=== PATIENT | female | born 1935 | race Caucasian/White ===

== ENCOUNTER 2025-03-04 10:29 | Outpatient (AMB) | payer BC, MEDICARE, SELFPAY ==
--- NOTE | 2025-03-04 10:11 | MHC.PC.OV ---
Vital Signs 03/04/25 10:34 Height 5 ft 6 in Weight 133 lb BMI 21.5 BP 126/74 Blood Pressure Location Lt brachial Position Sitting Pulse 73 Pulse Source Pulse Oximeter Temp 97.1 F Temp Source Temporal Artery Scan Pulse Oximetry (%) 97 Oxygen Delivery Method Room Air Intake Visit Reasons: establish care [employer] Field Assistant Required: No Accompanied by: Self / Same As Patient Allergies Penicillins (PCN) Allergy (Verified 03/04/25 10:50) Rash Medication List - Last Reconciled 03/04/25 by Daina Abbott PA-C amlodipine 5 mg PO DAILY atorvastatin (Lipitor) 40 mg PO DAILY clopidogrel 75 mg PO DAILY hydrochlorothiazide 25 mg PO DAILY lisinopril 10 mg PO BID meclizine 12.5 mg PO TID PRN metoprolol tartrate 100 mg PO BID Tobacco use date assessed: 03/04/25 Fall risk assessment: No Falls in past year Last assessed Fall Risk: 03/04/25 Dental Screening Dental Screen Date: 03/04/25 Did you have a dental visit in the last 12 months?: No Did you have a dental problem in the last 6 months where you did not have access to dental care?: No HPI establish care HPI Details 89 year old female coming to the office for the first time. Presenting for a follow-up on her chronic conditions and medication management. Transient Ischemic Attack (TIA) Approximately 6 to 8 years ago, the patient experienced a TIA and is on clopidogrel to prevent recurrence. Hypertension Previously uncontrolled, leading to syncope, now well-managed with medication. Previous Femur fracture impacts mobility, causing leg fatigue. She was previously following with cardiology possibly through [facility] and had a loop recorder performed but is unsure of the results. [facility] Medical History Femur fracture, right Family History Mother No problems noted. Father No problems noted. Social History Housing: Apartment Patient Tobacco Use Status: Former Tobacco user e-Cigarette/Vaping Use: Former Use service: No Current occupational status: retired Cognitive needs: No Hearing needs: No Vision needs: Yes (reading glasses) Questionnaire PHQ-9 Over the last 2 weeks, how often have you been bothered by any of the following problems? 1. Little interest or pleasure in doing things: not at all 2. Feeling down, depressed, or hopeless: not at all 3. Trouble falling or staying asleep, or sleeping too much: not at all 4. Feeling tired or having little energy: not at all 5. Poor appetite or overeating: not at all 6. Feeling bad about yourself - or that you are a failure or have let yourself or your family down: not at all 7. Trouble concentrating on things, such as reading the newspaper or watching television: not at all 8. Moving or speaking so slowly that other people could have noticed. Or the opposite - being so fidgety or restless that you have been moving around a lot more than usual: not at all 9. Thoughts that you would be better off or of hurting yourself in some way: not at all Total score: 0 Depression Screening Interpretation: Negative Depression Screening Done: Yes Source: Developed by Drs. Santiago Kaur, Genesis Pierce, Jack Locke and colleagues, with an educational franc from [email or web address]. Thrive Questionnaire Date Thrive assessed: 03/04/25 I am a: Patient Within the past 12 months, did the food you bought not last and you didn't have the money to get more?: Never true Within the past 12 months, did you worry whether your food would run out before you got money to buy more?: Never true Do you have trouble paying for medicines?: No Do you have trouble getting transportation to medical appointments?: No Do you have trouble paying your heating and electricity bill?: No Do you have trouble taking care of your child, family member or friend?: No Do you have trouble with day-to-day activities such as bathing, preparing meals, shopping, managing finances, etc.?: No Are you currently unemployed and looking for a job?: No Are you interested in more education?: No THRIVE Score: 0 AUDIT C Alcohol Use Questionnaire (AUDIT-C) 1. How often do you have a drink containing alcohol?: Never 3. How often do you have six or more drinks on one occasion?: Never Total Score: 0 DARIN-7 AMB Questionnaire DARIN-7 Date DARIN - 7 assessed: 03/04/25 Feeling nervous, anxious, or on edge: 0 = Not at all Not being able to stop or control worryin = Not at all Worrying too much about different things: 0 = Not at all Trouble relaxin = Not at all Being so restless that it is hard to sit still: 0 = Not at all Becoming easily annoyed or irritable: 0 = Not at all Feeling afraid as if something awful might happen: 0 = Not at all Total DARIN-7 score (0-4 normal; 5-9 mild; 10-14 moderate; 15-21 severe): 0 Source: Developed by Drs. Santiago Kaur, Genesis Pierce, Jack Locke and colleagues, with an educational franc from [email or web address]. Review of Systems Const Denies body aches, Denies chills, Denies fever(s), Denies headache(s) and Denies poor appetite Eyes Reports no additional complaints ENT Denies dizziness and Denies headache(s) Card Denies chest pain, Denies syncope, Denies edema, Denies lightheadedness and Denies dyspnea Resp Denies cough and Denies dyspnea GI Denies abdominal pain, Denies constipation, Denies diarrhea, Denies nausea and Denies vomiting Reports no additional complaints Musc Reports no additional complaints and Denies abnormal gait Skin/Breast Reports system reviewed and no additional complaints, except as documented Neuro Denies abnormal gait, Denies dizziness, Denies syncope and Denies headache(s) Psych Reports no additional complaints Physical exam (Primary Care) Vital Signs: Last Vital Signs Temp 97.1 F 03/04/25 10:34 Pulse 73 03/04/25 10:34 BP 126/74 03/04/25 10:34 Pulse Ox 97 03/04/25 10:34 Oxygen Delivery Method Room Air 03/04/25 10:34 BMI result Body Mass Index 21.5 Tobacco/Smoking Status: Tobacco use Status Tobacco use date assessed 03/04/25 03/04/25 10:49 Patient Tobacco Use Status Former Tobacco user 03/04/25 10:49 e-Cigarette/Vaping Use Former Use 03/04/25 10:49 PHQ-9: PHQ-9 Score PHQ-9: Total score 0 03/04/25 10:58 Depression Screening Interpretation: Negative Thrive Assessment: Date of Thrive Assessment Date Thrive assessed 03/04/25 03/04/25 10:49 Const General: cooperative, healthy appearing, comfortable and no acute distress Orientation/consciousness: patient oriented x3 HENMT Head: Yes normocephalic Ears: hearing grossly normal bilaterally General nose exam: Normal external nose present Eyes General: appearance normal, both eyes and all related structures Conjunctivae: conjunctivae normal Neck Neck: Yes full ROM and Yes no lymphadenopathy Resp Effort & Inspection: normal respiratory effort Auscultation: clear to auscultation bilaterally, no crackles, no rales, no rhonchi and no wheezes Cardio Rate: regular rate Rhythm: regular rhythm Skin General skin exam: no rashes or lesions noted Neuro General: patient oriented x3 Gait exam (Neuro): Normal gait present Extrem General: Yes normal to inspection, Yes full ROM and No edema Psych Affect: normal affect Attitude: cooperative Insight: Good insight present (Psych) Judgement: Good judgement present (Psych) Coding Level of Care Code New Pt Level 4 (72354) Diagnoses Hypercholesterolemia E78.00 Hypertension I10 TIA (transient ischemic attack) G45.9 BPPV (benign paroxysmal positional vertigo) H81.10 GERD (gastroesophageal reflux disease) K21.9 Assessment & Plan Assessment & Plan (1) Hypercholesterolemia: Code(s): E78.00 - Pure hypercholesterolemia, unspecified Category: Medical Plan: The patient will continue current lipid-lowering therapy. Lipid panel results will be reviewed once available to assess the need for any adjustments. Avoid foods that are high in cholesterol such as red meat, fried foods, eggs and baked goods. Triglyceride goal of less than 150 and LDL goal of less than 70 . Continue on Atorvastatin (2) Hypertension: Code(s): I10 - Essential (primary) hypertension Category: Medical Plan: Continue on current blood pressure medication. Avoid salt intake and encourage healthy diet and regular exercise. (3) TIA (transient ischemic attack): Code(s): G45.9 - Transient cerebral ischemic attack, unspecified Category: Medical Plan: History of TIA and on clopidogrel. Continue with close management of cholesterol, blood pressure and blood sugars. I did ordered for updated blood work to be completed by the patient (4) BPPV (benign paroxysmal positional vertigo): Code(s): H81.10 - Benign paroxysmal vertigo, unspecified ear Category: Medical Plan: She currently uses Meclizine as needed. (5) GERD (gastroesophageal reflux disease): Code(s): K21.9 - Gastro-esophageal reflux disease without esophagitis Category: Medical Plan: Dietary modifications to avoid acidic foods are recommended to manage GERD symptoms. [id number] antacids may be used as needed for symptom relief. Avoid trigger foods such as citrus, tomato products, soda, caffeine, spicy foods and other foods that may be irritating to your stomach. Avoid laying flat 3-4 hours after eating and elevate the head of the bed 30 degrees to prevent acid from moving into the esophagus. Plan This note was constructed using voice recognition software. While every effort has been made to ensure accuracy and director of pupil personnel program, still areas may have been included sometimes these areas may affect the content or meeting of the given symptoms. Total time spent caring for the patient today was 30 minutes. This includes time spent before the visit reviewing the chart, time spent during the visit, and time spent after the visit and documentation. Patient was informed and verbally consented to the use of an ambient scribe for clinic note documentation during this visit. Orders: Orders Lipid Panel Today E78.00 - Pure hypercholesterolemia, unspecified, G45.9 - Transient cerebral ischemic attack, unspecified TSH reflex Free T4 Today Z13.29 - Encounter for screening for other suspected endocrine disorder Vitamin B12 and Folate Today Z13.21 - Encounter for screening for nutritional disorder Complete Blood Count Auto Diff Today G45.9 - Transient cerebral ischemic attack, unspecified, Z00.00 - Encounter for general adult medical examination without abnormal findings Comprehensive Met. Panel Today G45.9 - Transient cerebral ischemic attack, unspecified, Z00.00 - Encounter for general adult medical examination without abnormal findings Vitamin D 25-OH Total Today Z13.21 - Encounter for screening for nutritional disorder Medications: New amlodipine 5 mg PO DAILY 90 tabs 0RF atorvastatin (Lipitor) 40 mg PO DAILY 90 tabs 0RF clopidogrel 75 mg PO DAILY 90 tabs 0RF lisinopril 10 mg PO BID 180 tabs 0RF metoprolol tartrate 100 mg PO BID 180 tabs 0RF clopidogrel 75 mg PO DAILY 90 tabs 1RF lisinopril 10 mg PO BID 180 tabs 1RF metoprolol tartrate 100 mg PO BID 180 tabs 1RF hydrochlorothiazide 25 mg PO DAILY 90 tabs 0RF amlodipine 5 mg PO DAILY 90 tabs 1RF atorvastatin (Lipitor) 40 mg PO DAILY 90 tabs 1RF hydrochlorothiazide 25 mg PO DAILY 90 tabs 1RF
[2025-03-04 10:34] VITALS: BP 126/74; PULSE 73; TEMP 36.2; O2SAT 97; BMI 21.5
--- OUTSIDE RECORDS SUMMARY | 2025-03-04 12:51 | XMS_ITS | Clinical Summary ---
Author Organization [facility] Address [address] [place] [address] Phone Care Team Providers Care Community Relations Rep Name Role Phone Unavailable Primary Care Provider Unavailabl e Allergies Active Allergy Reactions Criticality Noted Date Comments Penicillins 05/24/2018 Medications cholecalcifero l (VITAMIN D-3) 10 mcg (400 unit) tablet Take 1 tablet (400 Units total) by mouth daily. Active raloxifene (EVISTA) 60 mg tablet Take 1 tablet (60 mg total) by mouth 1 (one) time each day. 30 each 6 4 Active amLODIPine (NORVASC) 5 mg tablet Take 1 tablet (5 mg total) by mouth at bedtime. at bedtime 90 tablet 1 5 Active metoprolol tartrate (LOPRESSOR) 100 mg tablet TAKE ONE TABLET BY MOUTH TWICE DAILY 180 tablet 1 5 Active atorvastatin (LIPITOR) 40 mg tablet Take 1 tablet (40 mg total) by mouth at bedtime. 90 tablet 1 5 Active clopidogreL (PLAVIX) 75 mg tablet TAKE ONE TABLET BY MOUTH ONCE DAILY 90 tablet 1 5 Active lisinopriL (PRINIVIL,ZEST RIL) 10 mg tablet TAKE ONE TABLET BY MOUTH EVERY TWELVE HOURS daily 180 tablet 1 5 Active hydroCHLOROthi azide (HYDRODIURIL) 25 mg tablet TAKE ONE TABLET BY MOUTH ONCE DAILY 90 tablet 5 Active hydroCHLOROthi azide (HYDRODIURIL) 25 mg tablet TAKE ONE TABLET BY MOUTH ONCE DAILY 90 tablet 1 5 02/27/20 25 Discontinued Active Problems Problem Noted Date Diagnosed Date History of stroke 08/23/2024 Vertigo 02/04/2023 Hyperlipidemia 07/16/2021 Hypothyroidism 07/16/2021 Eczema 03/20/2019 Erosive gastritis 12/18/2018 Hypertension 11/28/2018 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/03/2016 Osteoporosis 10/22/2016 Breast cancer ([facility] V24, [facility] V28) Overview (08/23/2024): right breast, lumpectomy History of breast cancer Overview (08/28/2024): 2018 right breast lumpectomy, RT Resolved Problems Problem Noted Date Diagnosed Date Resolved Date Edema of left foot 04/30/2020 Right elbow pain 04/30/2020 08/23/2024 Immunizations Name Administration Dates Next Due Influenza Quadravalent, 0.5m l (Fluad) 65yo and older 04/25/2023,03/24/2021,03/05/2020 Influenza Quadravalent, 0.5m l (Fluzone High-dose) 65yo and older 04/05/2024,04/16/2022,03/22/2018 Influenza trivalent, 0.5mL ( Fluzone High-dose) 65yo and older 03/13/2023,03/22/2019,03/16/2017,02/17 Influenza trivalent, 0.5mL, preservative free (Fluarix; FluLaval; Fluzone) ages 6mo and older (Afluria) 3 years and older 03/13/2015,02/17/2011 Influenza trivalent, with pr eservative (Fluzone; Afluria) 6mo and older 02/26/2014,04/19/2013,03/31/2012,03/16,03/05/2010 Pfizer SARS-CoV-2 COVID-19, mRNA, LNP-S, preservative free 04/21/2021,08/06/2020,07/15/2020 Pneumococcal conjugate 13 va lent (Prevnar 13, PCV13) 2mo and older 03/22/2019 Pneumococcal polysaccharide 23 valent (Pneumovax 23) 2yo and older 02/17/2006 RSV, bivalent, protein subun it RSVpreF, 0.5mL, Preservative Free (ABRYSVO) 60yo and older or 32 through 36 wks of 08/24/2023 Respiratory Syncytial Virus Monoclonal Antibody (palivizumab), Intramuscular 08/24/2023 Td Tetanus diptheria (Tdvax) 7yo and older 11/17/2021 Zoster recombinant (Shingrix ) 19yo and older 05/05/2024 Surgical History Surgery Date Site/Laterality Comments SCREENING MAMMOGRAM 03/27/2024 Bilateral Medical History Medical History Date Comments Hypothyroidism 07/16/2021 Hyperlipidemia 07/16/2021 Vertigo 02/04/2023 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/03/2016 Erosive gastritis 12/18/2018 Osteoporosis 10/22/2016 History of stroke 08/23/2024 History of breast cancer 2019 ri ght breast lumpectomy, RT Family History Medical History Relation Name Comments Other: cancer bone Father Hypertension Mother cholesterol Relation Name Status Comments Father Mother Social History Tobacco Use Types Packs/Day Years Used Date Smoking Tobacco: Former Smokeless Tobacco: Never Tobacco Cessation:Counseling Given: Not Answered Comments Unknown Sex and Gender Information Value Date Recorded Sex Assigned at Not on file Legal Sex Female 10:48 AM EST Gender Identity Not on file Sexual Orientation Not on file Obstetrics History Last Filed Vital Signs Vital Sign Reading Time Taken Comments Blood Pressure 124/68 08/28/2024 10:58 AM EDT Pulse 68 08/28/2024 10:58 AM EDT Temperature 36.2 C (97.1 F) 08/28/2024 10:58 AM EDT Respiratory Rate 14 08/28/2024 10:58 AM EDT Oxygen Saturation 95% 08/28/2024 10:58 AM EDT Inhaled Oxygen Concentration - - Weight 64.9 kg (143 lb 1.6 oz) 08/28/2024 10:58 AM EDT Height 167.6 cm (5' 6 ) 08/28/2024 10:58 AM EDT Body Mass Index 23.1 08/28/2024 10:58 AM EDT Plan of Treatment Upcoming Encounters Date Type Department Care Team (Late st Contact Info) Description 05/29/2025 11:00 AM EST Office Visit [facility] Hematology Oncology [address] [place] [id number] Nelson Peng MD [address] [place] [address] Health Maintenance Due Date Last Done Comments Social Influencers of Health Screening 05/19/2022 Depression Screening 06/13/2024 Zoster Vaccines (2 of 2) 06/30/2024 05/05/2024 COVID-19 Vaccine ( - season) 2025 04/21/2021, 08/06/2020, 07/15/2020 Influenza Vaccine (#1) 2025 , 04/25/2023, 03/13/2023, Additional history exists Falls Risk Assessment 02/27/2025 02/28/2024 Medicare Annual Wellness Visit 02/27/2025 02/28/2024 Hypertension/CHF/CAD Annual BMP Blood Test 03/27/2025 03/27/2024, 03/02/2018, 03/02/2018 Cholesterol Screening (Lipid Panel) 03/27/2029 03/27/2024 DTaP,Tdap,and Td Vaccines (2 - Td or Tdap) 11/18/2031 11/17/2021 Osteoporosis Screening (Bone Density Screening) 09/13/2032 09/13/2022, 02/08/2020 Pneumococcal Vaccine: 50+ Years Completed 03/22/2019, 02/17/2006 RSV Immunization Adult Patients Completed 08/24/2023 HIB Vaccines Aged Out No longer eligi ble based on patient's age to complete this topic HPV Vaccines Aged Out No longer eligi ble based on patient's age to complete this topic Hepatitis A Vaccines Aged Out No long er eligible based on patient's age to complete this topic Hepatitis B Vaccines Aged Out No long er eligible based on patient's age to complete this topic IPV Vaccines Aged Out No longer eligi ble based on patient's age to complete this topic MMR Vaccines Aged Out No longer eligi ble based on patient's age to complete this topic Meningococcal ACWY Vaccine Aged Out N o longer eligible based on patient's age to complete this topic Meningococcal B Vaccine Aged Out No l onger eligible based on patient's age to complete this topic RSV Immunization Patients Under 20 months Aged Out No longer eligible based on patient's age to complete this topic Varicella Vaccines Aged Out No longer eligible based on patient's age to complete this topic Procedures Procedure Name Priority Date/Time Associated Diagnosis Comments [facility] DEXA AXIAL SKELETON Routine 09/13/2022 11:50 AM EDT Encounter for screening for osteoporosis ANNUAL BMP BLOOD TEST Routine 03/02/2018 from Last 3 Months or Most Recently Relevant to Health Maintenance Results * [facility] DEXA AXIAL SKELETON (09/13/2022 11:50 AM EDT) Anatomical Region Laterality Modality Mammography 09/13/2022 11:1 2 AM EDT Narrative 09/13/2022 11:[address] [facility] Diagnostic Imaging Department [address] [place] [address] Patient: YESSENIA COLON D.O.B./Age/Sex: 1935 - 86 - F Unit#: [id number] Location/Status: SPDIMAM/REG CLI Mnem[facility] Ordering Physician: NELSON PENG MD [facility] Dexa Axial Skeleton - 09/13/22 - 1135 HISTORY: The patient is an 86-year-old postmenopausal female with clinical concern for metabolic bone disease. FINDINGS: Dual energy x-ray absorptiometry of the lumbar spine and left femur is performed. The mean bone mineral density at L2-4 is 0.917 gm/cm2 which is 76% of that of young normals and 94% of that of age matched controls. This yields a T-score of -2.4 and a Z-score of -0.5 which is diagnostic of osteopenia. The mean bone mineral density of the left femur is 0.559 gm/cm2 which is 55% of that of young normals and 78% of that of age matched controls. This yields a T- score of -3.6 and a Z-score of -1.3 which is diagnostic of osteoporosis. IMPRESSION: 1. Osteoporosis. There has been a decrease of 1.2% in bone mineral density in the lumbar spine since the prior examination of 02/08/2020. There has been a decrease of 3.0% in bone mineral density in the left femur. 2. FRAX analysis yields a 10-year probability of major osteoporotic fracture of 40.3% and a 10-year probability of hip fracture of 18.3%. Code 60528 Dictating Physician: MARTHA TREVIZO MD Electronically Signed by: MARTHA TREVIZO MD Dic Date/Time: 09/13/22 1148 Sign date/Time: 09/13/22 1150 Procedure Note Martha Trevizo MD - 07/15/2023 [facility] Diagnostic Imaging Department [address] [place] [id number] Patient: YESSENIA COLON/Age/Sex: 1935 - 86 - F Unit#: [id number] Location/Status: [facility] Mnemonic/Ordering [facility] Ordering Physician: NELSON PENG MD [facility] Dexa Axial Skeleton - 09/13/22 - 1135 HISTORY: The patient is an 86-year-old postmenopausal female withclinical concern for metabolic bone disease. FINDINGS: Dual energy x-ray absorptiometry of the lumbar spine and leftfemur is performed. The mean bone mineral density at L2-4 is 0.917 gm/cm2 whichis 76% of that of young normals and 94% of that of age matched controls. Thisyields a T-score of -2.4 and a Z-score of -0.5 which is diagnostic of osteopenia. The mean bone mineral density of the left femur is 0.559 gm/cm2 which is55% of that of young normals and 78% of that of age matched controls. Thisyields a T- score of -3.6 and a Z-score of -1.3 which is diagnostic of osteoporosis. IMPRESSION: 1. Osteoporosis. There has been a decrease of 1.2% in bone mineraldensity in the lumbar spine since the prior examination of 02/08/2020. There has guzman decrease of 3.0% in bone mineral density in the left femur. 2. FRAX analysis yields a 10-year probability of major osteoporoticfracture of 40.3% and a 10-year probability of hip fracture of 18.3%. Code 58280 Dictating Physician: MARTHA TREVIZO MD Electronically Signed by: MARTHA TREVIZO MD Dic Date/Time: 09/13/22 1148 Sign date/Time: 09/13/22 1150 Nelson Peng MD IMG BI PROCEDURES Final Resu lt * Annual BMP Blood Test (03/02/2018) [facility] Annual BMP Blood Test Abstracted Historical Provider HEALTH MAINTENANCE Final Result from Last 3 Months or Most Recently Relevant to Health Maintenance Insurance MEDICARE [facility])
--- OUTSIDE RECORDS SUMMARY | 2025-03-04 12:51 | XMS_ITS | Clinical Summary ---
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 05/04/2024 Active clopidogrel (PLAVIX) 75 MG tablet Take 75 mg by mouth daily. Active metoPROLOL TARTRATE (LOPRESSOR) 100 MG tablet 05/15/2024 Active atorvastatin (LIPITOR) 40 MG tablet Take 40 mg by mouth. 05/21/2024 Active lisinopril (PRINIVIL,ZeSTRI L) 10 MG tablet Take 10 mg by mouth every 12 hours. 07/10/2024 Active Social History Tobacco Use Types Packs/Day Years Used Date Smoking Tobacco: Never Assessed Comments Unknown Sex and Gender Information Value Date Recorded Sex Assigned at Not on file Legal Sex Female 6:16 PM EDT Gender Identity Not on file Sexual Orientation Not on file Last Filed Vital Signs Vital Sign Reading Time Taken Comments Blood Pressure 161/88 07/28/2024 12:30 PM EST Pulse 70 07/28/2024 12:30 PM EST Temperature 37.1 C (98.7 F) 07/28/2024 12:30 PM EST Respiratory Rate 16 07/28/2024 12:30 PM EST Oxygen Saturation 96% 07/28/2024 12:30 PM EST Inhaled Oxygen Concentration - - Weight 61.2 kg (135 lb) 07/28/2024 12:30 PM EST Height 167.6 cm (5' 6 ) 07/28/2024 12:30 PM EST Body Mass Index 21.79 07/28/2024 12:30 PM EST Plan of Treatment Health Maintenance Due Date Last Done Comments Advance Care Planning 1935 DTaP/Tdap/Td Vaccines (1 - Tdap) 10/12/1955 Pneumococcal Vaccines 50+ (1 of 1 - PCV) 1986 Zoster (Shingles) Vaccine (1 of 2) 1986 DXA Bone Density (Females,Ages 65 and older) 2001 RSV Vaccine 60 years and older and Patients (1 - 1-dose 75+ series) 10/12/2011 Influenza Vaccine 01/11/2025 04/05/2024, , 04/25/2023, Additional history exists COVID-19 Vaccine (2024- season) 2025 04/30/2022, 04/21/2021, 08/06/2020, Additional history exists Hepatitis B Vaccines Aged Out No long er eligible based on patient's age to complete this topic Insurance MEDICARE PART A & B [place] [id number] Care Teams Coal Cutting Machine Operator Relationship Specialty Start Date End Date Pcp, No PCP - General General Medicine 07/28/24
--- OUTSIDE RECORDS SUMMARY | 2025-03-04 12:51 | XMS_ITS | Clinical Summary ---
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 0 Active clopidogrel (PLAVIX) 75 MG tablet Take 1 tablet (75 mg total) by mouth daily. 0 Active atorvastatin (LIPITOR) tablet 40 mg Take 1 tablet (40 mg total) by mouth daily. 0 Active Acetaminophen (TYLENOL PO) Take by mouth. 0 Active vitamin D3 (VITAMIN D3) 10 MCG (400 UNIT) tablet Take 1 tablet (400 Units total) by mouth daily. 0 Active vitamin C (ASCORBIC ACID) 250 MG tablet Take 1 tablet (250 mg total) by mouth daily. 0 Active meclizine (ANTIVERT) 12.5 MG tablet Take 1 tablet (12.5 mg total) by mouth 3 (three) times a day as needed. 0 Active metoprolol tartrate (LOPRESSOR) 100 MG tablet TAKE ONE TABLET BY MOUTH TWICE DAILY 0 03/05/2020 Active lisinopril (PRINIVIL,ZESTRIL) tablet 10 mg TAKE ONE TABLET BY MOUTH TWICE DAILY 180 tablet 0 06/16/2023 Active raloxifene (EVISTA) tablet 60 mg TAKE ONE TABLET BY MOUTH ONCE DAILY 30 tablet 0 04/13/2024 Active Active Problems Problem Noted Date Diagnosed Date Edema of left foot 04/30/2020 Right elbow pain 04/30/2020 Family History Medical History Relation Name Comments Bone cancer Father Relation Name Status Comments Father Social History Tobacco Use Types Packs/Day Years Used Date Smoking Tobacco: Former Cigarettes 1 443 - 2018 Smokeless Tobacco: Never Comments:quit 2 years ago Alcohol Use Standard Drinks/Week Comments No 0 (1 standard drink = 0.6 oz pur e alcohol) 1 coors light monthly Sex and Gender Information Value Date Recorded Sex Assigned at Not on file Gender Identity Not on file Sexual Orientation Not on file Job Start Date Occupation Industry Not on file Not on file Not on file Last Filed Vital Signs Vital Sign Reading Time Taken Comments Blood Pressure 142/72 11/22/2023 10:43 AM EDT Pulse 64 11/22/2023 10:43 AM EDT Temperature 37 C (98.6 F) 11/22/2023 10:43 AM EDT Respiratory Rate - - Oxygen Saturation 98% 11/22/2023 10:43 AM EDT Inhaled Oxygen Concentration - - Weight 61.2 kg (135 lb) 11/22/2023 10:43 AM EDT Height 167.6 cm (5' 6 ) 11/22/2023 10:43 AM EDT Body Mass Index 21.79 11/22/2023 10:43 AM EDT Plan of Treatment Health Maintenance Due Date Last Done Comments Depression Screening 1948 Preventative Health Evaluation 1954 Shingrix-Zoster Vaccine (1 of 2) 1986 Fall Risk Assessment 2001 Osteoporosis Screening (DEXA Scan) 2001 RSV Adult > 60+ Yrs or (1 - 1-dose 75+ series) 10/12/2011 DTap / Tdap / Td (1 - Tdap) 11/18/2021 11/17/2021 COVID-19 Vaccine ( season) 2025 04/21/2021, 08/06/2020, 07/15/2020 Influenza Vaccine (#1) 2025 3, 03/24/2021, 03/22/2019, Additional history exists Pneumococcal Vaccine Completed 03/22/2019, 02/18/20 06 Hepatitis B Vaccines Aged Out No long er eligible based on patient's age to complete this topic RSV Ped < 20 months Aged Out No longe r eligible based on patient's age to complete this topic Care Teams Continuous Pillowcase Cutter Relationship Specialty Start Date End Date Lisa Finney MD PCP - General Internal Medicine 08/27/21
--- OUTSIDE RECORDS SUMMARY | 2025-03-04 12:51 | XMS_ITS ---
Author Name [facility] Organization Unknown History of Medication Use Medication Directions Dispensed Refills Start Date End Date Stat us lisinopril (PRINIVIL,ZeSTRIL) 10 MG tablet Take 10 mg by mouth every 12 hours. 07/10/2024 active atorvastatin (LIPITOR) 40 MG tablet Take 40 mg by mouth. 05/21/2024 acti ve metoPROLOL TARTRATE (LOPRESSOR) 100 MG tablet 05/15/2024 active amLODIPine (NORVASC) 5 MG tablet Take 1 tablet by mouth nightly. 05/04/2024 active Vitamin DTakeNo date recordedNo form recordedNo frequency recordedNo route recordedNo set duration recordedNo set duration amount recordedactiveNo dosage strength recordedNo dosage strength units of measure recorded active clopidogrel (PLAVIX) 75 MG tablet Take 75 mg by mouth daily. active Allergies Allergen Reaction Severity Comment Documented Date Source Statu s PENICILLINS RASH/DERMATITIS 05/24/2018 [facility] a ctive Problems Problem Status Onset Date Problem Type Date of Resolution Source Hypertension active ProblemAct [facility]_PHY SONE Acute pharyngitis due to other specified organisms active 2023-08-27 ProblemAct [facility]_PHYSONE Dysphagia, unspecified type active EncounterDiagnosisAct HH CCT Foreign body sensation, throat active EncounterDiagnosisAct H [facility] Encounters Encounter Type Encounter Reason Primary Diagnosis Location Date Ambulatory Other Other [place] [employer] 07/28/2024 Care Team Organization Name Specialty Phone Email Start Date End Da te [facility] 01/30/2025 [facility] 08/22/2024 09/06/2024 [facility] 07/29/2024 [facility] Not Found Primary Care 08/27/2023 02/16/2025 [facility] Not Found Primary Care 08/27/2023 [facility] Lisa Finney Primary Care 04/20/2022
== END 2025-03-04 11:26 | disposition home or self-care (01) ==
LOC: HO.HMCH 10:30
DX: E78.00 Pure hypercholesterolemia, unspecified (principal); I10 Essential (primary) hypertension; G45.9 Transient cerebral ischemic attack, unspecified; H81.10 Benign paroxysmal vertigo, unspecified ear; K21.9 Gastro-esophageal reflux disease without esophagitis